=== PATIENT | male | born 1945 | race Caucasian/White ===

== ENCOUNTER 2019-10-12 16:12 | Inpatient (IN) | payer MEDICARE ==
[~2019-10-12] VITALS: Ht 175.3 cm; Wt 86.3 kg
[2019-10-12] VITALS (7 sets, daily range): BP systolic 125–148; BP diastolic 74–91
[2019-10-12] MEDS ORDERED: HEPARIN for IV BOLUS 10,000 UNIT/10 ML VIAL. IV ONE (16:15)
--- NOTE | 2019-10-12 16:22 | PHYS DOC ---
General Adult EDM: Chief Complaint: CHEST PAIN HPI: HPI: Patient is a 74 year old male who was brought here by EMS from home due to right sided chest pain that radiated to his right arm and shoulder started about 30 minutes ago. EMS were called, they given 2 doses of nitroglycerin and the pain improved. Patient was given 325 mg of aspirin by EMS on route here. Patient denies any cough or fever, denies being exposed to anybody who tested positive for COVID-19. Patient denies any history of coronary disease. Patient said when he had a prostate operation last year he went to [facility] one time. Patient has history of hypertension, no history of diabetes, no history of blood clot disorder. Review of Systems: Review of Systems: Constitutional: Denies fever or chills. [] Eyes: Denies change in visual acuity. [] HENT: Denies nasal congestion or sore throat. [] Respiratory: Denies cough or shortness of breath. [] Cardiovascular: Positive for chest pain. GI: Denies abdominal pain, nausea, vomiting, bloody stools or diarrhea. [] : Denies dysuria. [] Musculoskeletal: Denies back pain or joint pain. [] Integument: Denies rash. [] Neurologic: Denies headache, focal weakness or sensory changes. [] Endocrine: Denies polyuria or polydipsia. [] Lymphatic: Denies swollen glands. [] Psychiatric: Denies depression or anxiety. [] Heart Score: Risk Factors: Risk Factors: DM, Current or recent (<one month) smoker, HTN, HLP, family history of CAD, obesity. Risk Scores: Score 0 - 3: 2.5% MACE over next 6 weeks - Discharge Home Score 4 - 6: 20.3% MACE over next 6 weeks - Admit for Clinical Observation Score 7 - 10: 72.7% MACE over next 6 weeks - Early Invasive Strategies Current Medications: Current Medications Medications (Trade) Dose Ordered Sig/Marylou Start Time Stop Time Status Last Admin Dose Admin Heparin Sodium (Porcine) (Heparin Sodium) 4,000 unit 1X ONCE 10/12/19 16:15 10/12/19 16:20 DC Allergies: Allergies: Allergies Coded Allergies Type Severity Reaction Last Updated Verified No Known Drug Allergies 10/12/19 No Physical Exam: PE: Constitutional: Well developed, well nourished, no acute distress, non-toxic appearance. [] HENT: Normocephalic, atraumatic, bilateral external ears normal, oropharynx moist, no oral exudates, nose normal. [] Eyes: PERRLA, EOMI, conjunctiva normal, no discharge. [] Neck: Normal range of motion, no tenderness, supple, no stridor. [] Cardiovascular:Heart rate regular rhythm, no murmur [] Lungs & Thorax: Bilateral breath sounds clear to auscultation [] Abdomen: Bowel sounds normal, soft, no tenderness, no masses, no pulsatile masses. [] Skin: Warm, dry, no erythema, no rash. [] Back: No tenderness, no CVA tenderness. [] Extremities: No tenderness, no cyanosis, no clubbing, ROM intact, no edema. [] Neurologic: Alert and oriented X 3, normal motor function, normal sensory f unction, no focal deficits noted. [] Psychologic: Affect normal, judgement normal, mood normal. [] Current Patient Data: Labs: Laboratory Tests Test 10/12/19 16:17 White Blood Count 6.5 x10^3/uL Red Blood Count 5.05 x10^6/uL Hemoglobin 15.9 g/dL Hematocrit 46.2 % Mean Corpuscular Volume 92 fL Mean Corpuscular Hemoglobin 32 pg Mean Corpuscular Hemoglobin Concent 34 g/dL Red Cell Distribution Width 13.5 % Platelet Count 166 x10^3/uL Neutrophils (%) (Auto) 51 % Lymphocytes (%) (Auto) 38 % Monocytes (%) (Auto) 9 % Eosinophils (%) (Auto) 2 % Basophils (%) (Auto) 1 % Neutrophils # (Auto) 3.3 x10^3/uL Lymphocytes # (Auto) 2.5 x10^3/uL Monocytes # (Auto) 0.6 x10^3/uL Eosinophils # (Auto) 0.1 x10^3/uL Basophils # (Auto) 0.0 x10^3/uL Current Medications Medications (Trade) Dose Ordered Sig/Marylou Route PRN Reason Start Time Stop Time Status Last Admin Dose Admin Heparin Sodium (Porcine) (Heparin Sodium) 4,000 unit 1X ONCE IV 10/12/19 16:15 10/12/19 16:20 DC Ondansetron HCl (Zofran) 4 mg PRN Q8HRS PRN IV NAUSEA/VOMITING 5/27/20 16:30 10/13/19 16:29 UNV EKG: EKG: EKG WAS DONE AT 1660, RATE OF 62 BPM, ST SEGMENT ELEVATION IN II, III, AVF, V6. ST SEGMENT DEPRESSION IN V1, V2. EKG WAS READ BY THIS PHYSICIAN. Radiology/Procedures: Radiology/Procedures: Portable chest x-ray was read by this physician, no acute disease. Course & Med Decision Making: Course & Med Decision Making Pertinent Labs and Imaging studies reviewed. (See chart for details) Patient is a 74-year-old male who was evaluated in ER due to chest pain, EKG showed ST segment elevation consistent with an acute myocardial infarction. Code STEMI was activated on the field, EKG was transmitted here by EMS. Dr. Broderick, thermoscrew operator on-call was notified, [facility] team was present upon PATIENT arrival. Patient was given heparin 4000 units in the ED, he was taken urgently to the [facility] for diagnostic and treatment. He was in stable condition. Meggan Disclaimer: Meggan Disclaimer: This electronic medical record was generated, in whole or in part, using a voice recognition dictation system. Departure Departure Impression: Primary Impression: STEMI (ST elevation myocardial infarction) Disposition: ADMITTED INPATIENT Admitting Physician: CLEMENTE (DR. ABBASI) Condition: STABLE Referrals: NON,STAFF (PCP) JEFFRY HSU DO October 12, 2019 16:22
[2019-10-12 16:26] LABS: BASO % 1 % (0-3); EOS # 0.1 x10^3/uL (0.0-0.7); EOS % 2 % (0-3); HEMATOCRIT 46.2 % (39.0-53.0); HEMOGLOBIN 15.9 g/dL (13.0-17.5); LYMPH # 2.5 x10^3/uL (1.0-4.8); LYMPH % 38 % (24-48); MEAN CORPUSCULAR HEMOGLOBIN 32 pg (25-35); MEAN CORPUSCULAR HGB CONC 34 g/dL (31-37); MEAN CORPUSCULAR VOLUME 92 fL (79-100); MONO # 0.6 x10^3/uL (0.0-1.1); MONO % 9 % (0-9); NEUT # 3.3 x10^3/uL (1.8-7.7); NEUT % 51 % (31-73); PLATELET COUNT 166 x10^3/uL (140-400); RED BLOOD COUNT 5.05 x10^6/uL (4.30-5.70); RED CELL DISTRIBUTION WIDTH 13.5 % (11.5-14.5); WHITE BLOOD COUNT 6.5 x10^3/uL (4.0-11.0)
[2019-10-12] MEDS ORDERED: ONDANSETRON PF 4 MG/2 ML VIAL. IV PRN ×2 (16:30→18:45)
--- NOTE | 2019-10-12 16:33 | RAD ---
PORTABLE CHEST 1V Clinical Indication: Reason: CHEST PAIN,ER 1 / Spl. Instructions: / History: Comparison: None. Findings: Tortuous and ectatic thoracic aorta. Cardiac size is normal. There is minimal atelectasis in the lung bases. No pulmonary vascular congestion. There is no pneumothorax. No pleural effusion is appreciated. No acute bone abnormality. Bilateral AC arthropathy. IMPRESSION: No acute cardiopulmonary process. Electronically signed by: Casa Frias MD (10/12/2019 4:30 PM) [id number]
[2019-10-12 16:36] LABS: CREATININE 1.2 mg/dL (0.7-1.3); PROTHROMBIN TIME PATIENT 13.4 SEC (11.7-14.0)
[2019-10-12] MEDS ORDERED: BIVALIRUDIN 250 MG VIAL. IV ONE ×2 (16:39→16:45)
[2019-10-12 16:41] LABS: ALBUMIN 3.9 g/dL (3.4-5.0); ALBUMIN/GLOBULIN RATIO 1.1 (1.0-1.7); TOTAL BILIRUBIN 0.5 mg/dL (0.2-1.0); TOTAL PROTEIN 7.4 g/dL (6.4-8.2)
[2019-10-12] MEDS ORDERED: LIDOCAINE 1% Multi-Dose 20 ML VIAL. INJ ONE (16:45)
[2019-10-12] MEDS ORDERED: IODIXANOL 320 MG/ML 100 ML VIAL. IART ONE (16:45)
[2019-10-12] MEDS ORDERED: MIDAZOLAM HCL/PF 2 MG/2 ML VIAL. IV ONE (16:45)
[2019-10-12] MEDS ORDERED: fentaNYL PF VIAL 100 MCG/2 ML VIAL IV ONE (16:45)
[2019-10-12] MEDS ORDERED: IODIXANOL 320 MG/ML 100 ML VIAL. ONE ×2 (17:06→17:36)
[2019-10-12] MEDS ORDERED: TICAGRELOR 90 MG TABLET. ONE (17:14)
[2019-10-12] MEDS ORDERED: TICAGRELOR 90 MG TABLET. PO ONE (17:15)
[2019-10-12] MEDS ORDERED: CONTRAST GIVEN. MC PRN (17:15)
[2019-10-12] MEDS ORDERED: fentaNYL PF VIAL 100 MCG/2 ML VIAL ONE (17:18)
[2019-10-12] MEDS ORDERED: MIDAZOLAM HCL/PF 2 MG/2 ML VIAL. ONE (17:19)
--- NOTE | 2019-10-12 17:29 | PDOC2 ---
CONSULT Date of Consult Date of Consult DATE: 10/12/19 TIME: 17:29 Reason for Consult Reason for Consult: Acute STEMI Referring Physician Referring Physician: Dr. Pace Identification/Chief Complaint Chief Complaint Chest pain Source Source: Chart review, Patient History of Present Illness Reason for Visit: 74-year-old male apparently played golf earlier today and on the way home he did not feel well and when he got home he started having retrosternal chest pressure associated with diaphoresis, 7/10 severity. He also complained of mild dyspnea. EMS found ST elevations in inferior leads and code STEMI was activated. On presentation to our ED, he continued to have chest pain at 5/10 severity but denied any orthopnea/PND, palpitations or syncope. He denied any previous history of coronary disease but he stated that he was diagnosed with a bout of atrial fibrillation, perioperatively when he presented for prostate surgery, approximately 1 year ago. He is followed by [facility] cardiology. Past Medical History Past Medical History Hypertension Hyperlipidemia Atrial fibrillation in the perioperative setting Osteoarthritis Past Surgical History Past Surgical History Prostate surgery Family History Family History Coronary disease and hypertension Social History Social History Patient quit smoking 30 years ago, admitted to occasional intake of alcohol but denied any drug abuse. Current Problem List Problem List Problems Medical Problems: (1) STEMI (ST elevation myocardial infarction) Status: Acute Current Medications Current Medications Current Medications Heparin Sodium (Porcine) (Heparin Sodium) 4,000 unit 1X ONCE IV Last administered on 10/12/19at 16:17; Start 10/12/19 at 16:15; Stop 10/12/19 at 16:20; Status DC Ondansetron HCl (Zofran) 4 mg PRN Q8HRS PRN IV NAUSEA/VOMITING; Start 10/12/19 at 16:30; Stop 10/13/19 at 16:29 Bivalirudin (Angiomax) 250 mg STK-MED ONCE IV ; Start 10/12/19 at 16:39; Stop 10/12/19 at 16:40; Status DC Dopamine HCl/ Dextrose 0 ml @ As Directed STK-MED ONCE IV ; Start 10/12/19 at 16:52; Stop 10/12/19 at 16:52; Status DC Heparin Sodium/ Sodium Chloride (HEPARIN for ARTERIAL LINE FLUSH) 1,000 unit 1X ONCE IART ; Start 10/12/19 at 16:45; Stop 10/12/19 at 17:00; Status DC Midazolam HCl (Versed) 2 mg 1X ONCE IV ; Start 10/12/19 at 16:45; Stop 10/12/19 at 17:00; Status DC Fentanyl Citrate (Fentanyl 2ml Vial) 100 mcg 1X ONCE IV ; Start 10/12/19 at 16:45; Stop 10/12/19 at 17:00; Status DC Iodixanol (Visipaque 320) 100 ml 1X ONCE IART ; Start 10/12/19 at 16:45; Stop 10/12/19 at 17:00; Status DC Bivalirudin (Angiomax) 250 mg 1X ONCE IV ; Start 10/12/19 at 16:45; Stop 10/12/19 at 17:00; Status DC Lidocaine HCl (Lidocaine 1% 20ml Vial) 20 ml 1X ONCE INJ ; Start 10/12/19 at 16:45; Stop 10/12/19 at 17:00; Status DC Info (CONTRAST GIVEN -- Rx MONITORING) 1 each PRN DAILY PRN MC SEE COMMENTS; Start 10/12/19 at 17:15; Stop 10/14/19 at 17:14 Iodixanol (Visipaque 320) 100 ml STK-MED ONCE .ROUTE ; Start 10/12/19 at 17:06; Stop 10/12/19 at 17:07; Status DC Ticagrelor (Brilinta) 90 mg STK-MED ONCE .ROUTE ; Start 10/12/19 at 17:14; Stop 10/12/19 at 17:14; Status DC Ticagrelor (Brilinta) 180 mg 1X ONCE PO ; Start 10/12/19 at 17:15; Stop at 17:20; Status DC Fentanyl Citrate (Fentanyl 2ml Vial) 100 mcg STK-MED ONCE .ROUTE ; Start 10/12/19 at 17:18; Stop 10/12/19 at 17:19; Status DC Midazolam HCl (Versed) 2 mg STK-MED ONCE .ROUTE ; Start 10/12/19 at 17:19; Stop 10/12/19 at 17:19; Status DC Allergies Allergies: Coded Allergies: No Known Drug Allergies (Unverified , 10/12/19) ROS PSYCHOLOGICAL ROS: No: Hallucinations Eyes: No Loss of vision HEENT: No: Epistaxis Respiratory: YES: Shortness of breath; No: Hemoptysis Cardiovascular: yes Chest Pain; No Palpitations Gastrointestinal: No Vomiting, No Diarrhea Genitourinary: No Hematuria Neurological: No Seizures Skin: No Rash Physical Exam General: Alert, mild distress HEENT: Atraumatic Lungs: Clear to auscultation Heart: Regular rate Abdomen: Soft, No tenderness Extremities: No edema Neuro: Normal speech Psych/Mental Status: Mood NL Vitals VITALS Vital Signs Date Time Temp Pulse Resp B/P (MAP) Pulse Ox O2 Delivery O2 Flow Rate FiO2 10/12/19 16:12 97.6 79 20 133/85 (101) 95 Room Air 97.6 Labs Labs Laboratory Tests Test 10/12/19 16:17 White Blood Count 6.5 x10^3/uL (4.0-11.0) Red Blood Count 5.05 x10^6/uL (4.30-5.70) Hemoglobin 15.9 g/dL (13.0-17.5) Hematocrit 46.2 % (39.0-53.0) Mean Corpuscular Volume 92 fL (79-100) Mean Corpuscular Hemoglobin 32 pg (25-35) Mean Corpuscular Hemoglobin Concent 34 g/dL (31-37) Red Cell Distribution Width 13.5 % (11.5-14.5) Platelet Count 166 x10^3/uL (140-400) Neutrophils (%) (Auto) 51 % (31-73) Lymphocytes (%) (Auto) 38 % (24-48) Monocytes (%) (Auto) 9 % (0-9) Eosinophils (%) (Auto) 2 % (0-3) Basophils (%) (Auto) 1 % (0-3) Neutrophils # (Auto) 3.3 x10^3/uL (1.8-7.7) Lymphocytes # (Auto) 2.5 x10^3/uL (1.0-4.8) Monocytes # (Auto) 0.6 x10^3/uL (0.0-1.1) Eosinophils # (Auto) 0.1 x10^3/uL (0.0-0.7) Basophils # (Auto) 0.0 x10^3/uL (0.0-0.2) Prothrombin Time 13.4 SEC (11.7-14.0) Prothromb Time International Ratio 1.1 (0.8-1.1) Activated Partial Thromboplast Time 27 SEC (24-38) Sodium Level 141 mmol/L (136-145) Potassium Level 4.0 mmol/L (3.5-5.1) Chloride Level 107 mmol/L (98-107) Carbon Dioxide Level 27 mmol/L (21-32) Anion Gap 7 (6-14) Blood Urea Nitrogen 20 mg/dL (8-26) Creatinine 1.2 mg/dL (0.7-1.3) Estimated GFR (Cockcroft-Gault) 59.0 BUN/Creatinine Ratio 17 (6-20) Glucose Level 128 mg/dL (70-99) Calcium Level 9.0 mg/dL (8.5-10.1) Magnesium Level 2.0 mg/dL (1.8-2.4) Total Bilirubin 0.5 mg/dL (0.2-1.0) Aspartate Amino Transf (AST/SGOT) 27 U/L (15-37) Alanine Aminotransferase (ALT/SGPT) 27 U/L (16-63) Alkaline Phosphatase 82 U/L (46-116) Troponin I Quantitative 0.023 ng/mL (0.000-0.055) RO-Ukr-K-Type Natriuretic Peptide 80 pg/mL (0-449) Total Protein 7.4 g/dL (6.4-8.2) Albumin 3.9 g/dL (3.4-5.0) Albumin/Globulin Ratio 1.1 (1.0-1.7) Laboratory Tests Test 10/12/19 16:17 White Blood Count 6.5 x10^3/uL (4.0-11.0) Red Blood Count 5.05 x10^6/uL (4.30-5.70) Hemoglobin 15.9 g/dL (13.0-17.5) Hematocrit 46.2 % (39.0-53.0) Mean Corpuscular Volume 92 fL (79-100) Mean Corpuscular Hemoglobin 32 pg (25-35) Mean Corpuscular Hemoglobin Concent 34 g/dL (31-37) Red Cell Distribution Width 13.5 % (11.5-14.5) Platelet Count 166 x10^3/uL (140-400) Neutrophils (%) (Auto) 51 % (31-73) Lymphocytes (%) (Auto) 38 % (24-48) Monocytes (%) (Auto) 9 % (0-9) Eosinophils (%) (Auto) 2 % (0-3) Basophils (%) (Auto) 1 % (0-3) Neutrophils # (Auto) 3.3 x10^3/uL (1.8-7.7) Lymphocytes # (Auto) 2.5 x10^3/uL (1.0-4.8) Monocytes # (Auto) 0.6 x10^3/uL (0.0-1.1) Eosinophils # (Auto) 0.1 x10^3/uL (0.0-0.7) Basophils # (Auto) 0.0 x10^3/uL (0.0-0.2) Prothrombin Time 13.4 SEC (11.7-14.0) Prothromb Time International Ratio 1.1 (0.8-1.1) Activated Partial Thromboplast Time 27 SEC (24-38) Sodium Level 141 mmol/L (136-145) Potassium Level 4.0 mmol/L (3.5-5.1) Chloride Level 107 mmol/L (98-107) Carbon Dioxide Level 27 mmol/L (21-32) Anion Gap 7 (6-14) Blood Urea Nitrogen 20 mg/dL (8-26) Creatinine 1.2 mg/dL (0.7-1.3) Estimated GFR (Cockcroft-Gault) 59.0 BUN/Creatinine Ratio 17 (6-20) Glucose Level 128 mg/dL (70-99) Calcium Level 9.0 mg/dL (8.5-10.1) Magnesium Level 2.0 mg/dL (1.8-2.4) Total Bilirubin 0.5 mg/dL (0.2-1.0) Aspartate Amino Transf (AST/SGOT) 27 U/L (15-37) Alanine Aminotransferase (ALT/SGPT) 27 U/L (16-63) Alkaline Phosphatase 82 U/L (46-116) Troponin I Quantitative 0.023 ng/mL (0.000-0.055) EY-Eyo-N-Type Natriuretic Peptide 80 pg/mL (0-449) Total Protein 7.4 g/dL (6.4-8.2) Albumin 3.9 g/dL (3.4-5.0) Albumin/Globulin Ratio 1.1 (1.0-1.7) Assessment/Plan Assessment/Plan 1. Acute inferior wall ST elevation myocardial infarction. Patient has ongoing chest pain. We will proceed with emergent cardiac catheterization and primary PCI/stent placement. Risks and benefits were explained and he is agreeable. Start aspirin, heparin, beta-blockers and statins. 2. Hypertension: Controlled 3. Hyperlipidemia: Continue statin therapy 4. Paroxysmal atrial fibrillation: Patient had one episode a year ago in perioperative setting. He is presently in sinus rhythm. Monitor telemetry. Thank you for your consultation. TIM GALLO MD October 12, 2019 17:29
[2019-10-12] MEDS ORDERED: ACETAMINOPHEN 325 MG TABLET. PO PRN ×2 (17:30→18:45)
[2019-10-12] MEDS ORDERED: IV 1/2 NORMAL SALINE 1,000 ML IV SCH (17:30)
[2019-10-12] MEDS ORDERED: NITROGLYCERIN SUBLINGUAL 0.4 MG BOTTLE OF 25. SL PRN (17:30)
--- NOTE | 2019-10-12 17:30 | PDOC ---
MODERATE SEDATION ASSESSMENT RISKS/ALTERNATIVES Risks/Alternatives Risks and alternatives of this type of sedation and procedure discussed with: RISK/ALTERNATIVES: Patient H & P ON CHART H & P H & P on chart and reviewed for co-morbid conditions and appropriate labs. H&P ON CHART: Yes STATUS PREG STATUS ASSESSED: N/A MEDS/ALLERGIES REVIEWED Meds/Allergies Reviewed Medications and Allergies including time and route of recently administered narcotics and sedatives. MEDS/ALLERGIES REVIEWED: Yes ASA RATING ASA RATING: II AIRWAY ASSESSMENT Airway Assessment Airway patency, oral function limitations, presence of caps, crowns, dentures, partials, and ability to extend neck assessed. AIRWAY ASSESSMENT: Yes MALLAMPATI SCORE MALLAMPATI SCORE: II PRE-SEDATION ASSESSMENT PRE-SEDATION ASSESSMENT: Yes TIM GALLO MD October 12, 2019 17:30
[2019-10-12] MEDS ORDERED: LIDOCAINE 1% Multi-Dose 20 ML VIAL. ONE (17:36)
[2019-10-12] MEDS ORDERED: LORazepam 0.5 MG TABLET PO PRN (18:45)
[2019-10-12] MEDS ORDERED: DOCUSATE SODIUM 100 MG CAPSULE. PO PRN (18:45)
[2019-10-12] MEDS ORDERED: 0.9 % SODIUM CHLORIDE 10 ML DISP.SYRIN. IV PRN (18:45)
[2019-10-12] MEDS ORDERED: guaiFENesin ORAL 200 MG/10 ML LIQUID. PO PRN (18:45)
[2019-10-12] MEDS ORDERED: MAG HYDROX/ALUMINUM HYD/SIMETH 30 ML ORAL.SUSP PO PRN (18:45)
[2019-10-12] MEDS ORDERED: ALBUTEROL SULFATE 2.5 MG/3 ML NEBU. NEB PRN (18:45)
--- NOTE | 2019-10-12 19:00 | NUR ---
Pt arrived to [facility] @ 1817. Pt A&Ox4, on RA. Femstop to right groin. No bleeding, soft. See Vascular assessment. Pt able to answer all admission questions. Report given to DIANDRA Zarco on hospital cook.
[2019-10-12] MEDS: ATORVASTATIN CALCIUM 40 MG TABLET. PO SCH (21:06)
[2019-10-12] MEDS: METOPROLOL TART IMMED RELEASE 25 MG TABLET. PO SCH (21:11)
--- NOTE | 2019-10-12 21:12 | PDOC1 ---
History and Physical Date of Admission Date of Admission DATE: 10/12/19 TIME: 21:10 Identification/Chief Complaint Chief Complaint SEEN IN ER WITH ACUTE STEMI, 74 year old male who was brought here by EMS from home due to right sided chest pain that radiated to his right arm and shoulder started about 30 minutes ago. He was playing golf earlier, began to have chest discomfort EMS were called, they given 2 doses of nitroglycerin and the pain improved. given 325 mg of aspirin by EMS on route denies any cough or fever, denies being exposed to anybody who tested positive for COVID-19. Patient denies any history of coronary disease. 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 Past Medical History Cardiovascular: HTN, Hyperlipidemia Heme/Onc: No pertinent hx Hepatobiliary: No pertinent hx Musculoskeletal: Osteoarthritis Infectious disease: No pertinent hx Family History Family History: High Cholestrol, Hypertension Social History Smoke: Quit (quit 30 yrs ago) ALCOHOL: occassional Drugs: None Current Problem List Problem List Problems Medical Problems: (1) STEMI (ST elevation myocardial infarction) Status: Acute Current Medications Current Medications Current Medications Heparin Sodium (Porcine) (Heparin Sodium) 4,000 unit 1X ONCE IV Last administered on 10/12/19at 16:17; Start 10/12/19 at 16:15; Stop 10/12/19 at 16:20; Status DC Ondansetron HCl (Zofran) 4 mg PRN Q8HRS PRN IV NAUSEA/VOMITING; Start 10/12/19 at 16:30; Stop 10/13/19 at 16:29 Bivalirudin (Angiomax) 250 mg STK-MED ONCE IV ; Start 10/12/19 at 16:39; Stop 10/12/19 at 16:40; Status DC Dopamine HCl/ Dextrose 0 ml @ As Directed STK-MED ONCE IV ; Start 10/12/19 at 16:52; Stop 10/12/19 at 16:52; Status DC Heparin Sodium/ Sodium Chloride (HEPARIN for ARTERIAL LINE FLUSH) 1,000 unit 1X ONCE IART Last administered on 10/12/19at 17:39; Start 10/12/19 at 16:45; Stop 10/12/19 at 17:00; Status DC Midazolam HCl (Versed) 2 mg 1X ONCE IV Last administered on 10/12/19at 17:38; Start 10/12/19 at 16:45; Stop 10/12/19 at 17:00; Status DC Fentanyl Citrate (Fentanyl 2ml Vial) 100 mcg 1X ONCE IV Last administered on at 17:38; Start 10/12/19 at 16:45; Stop 10/12/19 at 17:00; Status DC Iodixanol (Visipaque 320) 100 ml 1X ONCE IART Last administered on 10/12/19at 17:39; Start 10/12/19 at 16:45; Stop 10/12/19 at 17:00; Status DC Bivalirudin (Angiomax) 250 mg 1X ONCE IV Last administered on 10/12/19at 17:38; Start 10/12/19 at 16:45; Stop 10/12/19 at 17:00; Status DC Lidocaine HCl (Lidocaine 1% 20ml Vial) 20 ml 1X ONCE INJ Last administered on 10/12/19at 17:39; Start 10/12/19 at 16:45; Stop 10/12/19 at 17:00; Status DC Info (CONTRAST GIVEN -- Rx MONITORING) 1 each PRN DAILY PRN MC SEE COMMENTS; Start 10/12/19 at 17:15; Stop 10/14/19 at 17:14 Iodixanol (Visipaque 320) 100 ml STK-MED ONCE .ROUTE ; Start 10/12/19 at 17:06; Stop 10/12/19 at 17:07; Status DC Ticagrelor (Brilinta) 90 mg STK-MED ONCE .ROUTE ; Start 10/12/19 at 17:14; Stop 10/12/19 at 17:14; Status DC Ticagrelor (Brilinta) 180 mg 1X ONCE PO Last administered on 10/12/19at 17:40; Start 10/12/19 at 17:15; Stop 10/12/19 at 17:20; Status DC Fentanyl Citrate (Fentanyl 2ml Vial) 100 mcg STK-MED ONCE .ROUTE ; Start 10/12/19 at 17:18; Stop 10/12/19 at 17:19; Status DC Midazolam HCl (Versed) 2 mg STK-MED ONCE .ROUTE ; Start 10/12/19 at 17:19; Stop 10/12/19 at 17:19; Status DC Sodium Chloride 1,000 ml @ 100 mls/hr Q10H IV ; Start 10/12/19 at 17:30; Stop 10/13/19 at 03:29 Aspirin (Ecotrin) 81 mg DAILYWBKFT PO ; Start 10/13/19 at 08:00 Ticagrelor (Brilinta) 90 mg BID PO ; Start 10/13/19 at 09:00 Metoprolol Tartrate (Lopressor) 12.5 mg BID PO ; Start 10/12/19 at 21:00 Atorvastatin Calcium (Lipitor) 40 mg QHS PO ; Start 10/12/19 at 21:00 Acetaminophen (Tylenol) 650 mg PRN Q6HRS PRN PO MILD PAIN / TEMP > 100.3'F; Start 10/12/19 at 17:30 Nitroglycerin (Nitrostat) 0.4 mg PRN Q5MIN PRN SL CHEST PAIN; Start 10/12/19 at 17:30 Iodixanol (Visipaque 320) 100 ml STK-MED ONCE .ROUTE ; Start 10/12/19 at 17:36; Stop 10/12/19 at 17:36; Status DC Lidocaine HCl (Lidocaine 1% 20ml Vial) 20 ml STK-MED ONCE .ROUTE ; Start 10/12/19 at 17:36; Stop 10/12/19 at 17:36; Status DC Heparin Sodium/ Sodium Chloride 500 ml @ As Directed STK-MED ONCE .ROUTE ; Start 10/12/19 at 17:36; Stop 10/12/19 at 17:36; Status DC Sodium Chloride (Normal Saline Flush) 3 ml QSHIFT PRN IV AFTER MEDS AND BLOOD DRAWS; Start 10/12/19 at 18:45 Ondansetron HCl (Zofran) 4 mg PRN Q4HRS PRN IV NAUSEA/VOMITING; Start 10/12/19 at 18:45 Acetaminophen (Tylenol) 650 mg PRN Q4HRS PRN PO TEMP OVER 100.4F OR MILD PAIN; Start 10/12/19 at 18:45 Al Hydroxide/Mg Hydroxide (Mylanta Plus Xs) 30 ml PRN DAILY PRN PO HEARTBURN / GAS; Start 10/12/19 at 18:45 Docusate Sodium (Colace) 100 mg PRN BID PRN PO HARD STOOLS; Start 10/12/19 at 18:45 Albuterol Sulfate (Ventolin Neb Soln) 2.5 mg PRN Q4HRS PRN NEB SHORTNESS OF BREATH; Start 10/12/19 at 18:45 Guaifenesin (Robitussin) 200 mg PRN Q4HRS PRN PO COUGH; Start 10/12/19 at 18:45 Lorazepam (Ativan) 0.5 mg PRN Q4HRS PRN PO ANXIETY / AGITATION; Start 10/12/19 at 18:45 Allergies Allergies: Coded Allergies: No Known Drug Allergies (Unverified , 10/12/19) ROS Review of System Review of Systems: Review of Systems: Constitutional: Denies fever or chills. [] Eyes: Denies change in visual acuity. [] HENT: Denies nasal congestion or sore throat. [] Respiratory: Denies cough or shortness of breath. [] Cardiovascular: Positive for chest pain. GI: Denies abdominal pain, nausea, vomiting, bloody stools or diarrhea. [] : Denies dysuria. [] Musculoskeletal: Denies back pain or joint pain. [] Integument: Denies rash. [] Neurologic: Denies headache, focal weakness or sensory changes. [] Endocrine: Denies polyuria or polydipsia. [] Lymphatic: Denies swollen glands. [] Psychiatric: Denies depression or anxiety. [] 14 pt ros otherwise neg General: YES: Fatigue; No: Chills, Night Sweats, Malaise, Appetite, Other PSYCHOLOGICAL ROS: No: Anxiety, Behavioral Disorder, Concentration difficultie, Decreased libido, Depression, Disorientation, Hallucinations, Hostility, Irritablity, Memory difficulties, Mood Swings, Obsessive thoughts, Physical abuse, Sexual abuse, Sleep disturbances, Suicidal ideation, Other Eyes: No Blurry vision, No Decreased vision, No Double vision, No Dry eyes, No Excessive tearing, No Eye Pain, No Itchy Eyes, No Loss of vision, No P hotophobia, No Scotomata, No Uses contacts, No Uses glasses, No Other ALLERGY AND IMMUNOLOGY: No: Hives, Insect Bite Sensitivity, Itchy/Watery Eyes, Nasal Congestion, Post Nasal Drip, Seasonal Allergies, Other Hematological and Lymphatic: No: Bleeding Problems, Blood Clots, Blood Transfusions, Brusing, Night Sweats, Pallor, Swollen Lymph Nodes, Other Respiratory: YES: Shortness of breath; No: Cough, Hemoptysis, Orthopnea, Pleuritic Pain, SOB with excertion, Sputum Changes, Stridor, Tachypnea, Wheezing, Other Cardiovascular: yes Chest Pain Gastrointestinal: No Nausea, No Vomiting, No Abdominal Pain, No Diarrhea, No Constipation, No Melena, No Hematochezia, No Other Musculoskeletal: No Gait Disturbance, No Joint Pain, No Joint Stiffness, No Joint Swelling, No Muscle Pain, No Muscular Weakness, No Pain In:, No Swelling In:, No Other Neurological: No Behavorial Changes, No Bowel/Bladder ControlChng, No Confusion, No Dizziness, No Gait Disturbance, No Headaches, No Impaired Coord/balance, No Memory Loss, No Numbness/Tingling, No Seizures, No Speech Problems, No Tremors, No Visual Changes, No Weakness, No Other Physical Exam Physical Exam Physical Exam: PE: Constitutional: Well developed, well nourished, no acute distress, non-toxic appearance. [] HENT: Normocephalic, atraumatic, bilateral external ears normal, oropharynx moist, no oral exudates, nose normal. [] Eyes: PERRLA, EOMI, conjunctiva normal, no discharge. [] Neck: Normal range of motion, no tenderness, supple, no stridor. [] Cardiovascular:Heart rate regular rhythm, no murmur [] Lungs & Thorax: Bilateral breath sounds clear to auscultation [] Abdomen: Bowel sounds normal, soft, no tenderness, no masses, no pulsatile masses. [] Skin: Warm, dry, no erythema, no rash. [] Back: No tenderness, no CVA tenderness. [] Extremities: No tenderness, no cyanosis, no clubbing, ROM intact, no edema. [] Neurologic: Alert and oriented X 3, normal motor function, normal sensory function, no focal deficits noted. [] Psychologic: Affect normal, judgement normal, mood normal. [] General: Alert, Oriented X3, Cooperative, No acute distress HEENT: Atraumatic, PERRLA Lungs: Clear to auscultation, Normal air movement Heart: RRR, no thrills, no rubs, no gallops Cardiovascular: S1 Breasts: Not examined Abdomen: Normal bowel sounds, Soft, No tenderness, No masses Rectal Exam: not examined Extremities: No cyanosis Neuro: Normal speech, Cranial nerves 3-12 NL Psych/Mental Status: Mental status NL, Mood NL Vitals Vitals Vital Signs Date Time Temp Pulse Resp B/P (MAP) Pulse Ox O2 Delivery O2 Flow Rate FiO2 10/12/19 18:30 18 147/77 (100) 94 Room Air 10/12/19 17:53 70 2.0 10/12/19 16:12 97.6 97.6 Labs Labs Laboratory Tests Test 10/12/19 16:17 White Blood Count 6.5 x10^3/uL (4.0-11.0) Red Blood Count 5.05 x10^6/uL (4.30-5.70) Hemoglobin 15.9 g/dL (13.0-17.5) Hematocrit 46.2 % (39.0-53.0) Mean Corpuscular Volume 92 fL (79-100) Mean Corpuscular Hemoglobin 32 pg (25-35) Mean Corpuscular Hemoglobin Concent 34 g/dL (31-37) Red Cell Distribution Width 13.5 % (11.5-14.5) Platelet Count 166 x10^3/uL (140-400) Neutrophils (%) (Auto) 51 % (31-73) Lymphocytes (%) (Auto) 38 % (24-48) Monocytes (%) (Auto) 9 % (0-9) Eosinophils (%) (Auto) 2 % (0-3) Basophils (%) (Auto) 1 % (0-3) Neutrophils # (Auto) 3.3 x10^3/uL (1.8-7.7) Lymphocytes # (Auto) 2.5 x10^3/uL (1.0-4.8) Monocytes # (Auto) 0.6 x10^3/uL (0.0-1.1) Eosinophils # (Auto) 0.1 x10^3/uL (0.0-0.7) Basophils # (Auto) 0.0 x10^3/uL (0.0-0.2) Prothrombin Time 13.4 SEC (11.7-14.0) Prothromb Time International Ratio 1.1 (0.8-1.1) Activated Partial Thromboplast Time 27 SEC (24-38) Sodium Level 141 mmol/L (136-145) Potassium Level 4.0 mmol/L (3.5-5.1) Chloride Level 107 mmol/L (98-107) Carbon Dioxide Level 27 mmol/L (21-32) Anion Gap 7 (6-14) Blood Urea Nitrogen 20 mg/dL (8-26) Creatinine 1.2 mg/dL (0.7-1.3) Estimated GFR (Cockcroft-Gault) 59.0 BUN/Creatinine Ratio 17 (6-20) Glucose Level 128 mg/dL (70-99) Calcium Level 9.0 mg/dL (8.5-10.1) Magnesium Level 2.0 mg/dL (1.8-2.4) Total Bilirubin 0.5 mg/dL (0.2-1.0) Aspartate Amino Transf (AST/SGOT) 27 U/L (15-37) Alanine Aminotransferase (ALT/SGPT) 27 U/L (16-63) Alkaline Phosphatase 82 U/L (46-116) Troponin I Quantitative 0.023 ng/mL (0.000-0.055) WZ-Mmm-Z-Type Natriuretic Peptide 80 pg/mL (0-449) Total Protein 7.4 g/dL (6.4-8.2) Albumin 3.9 g/dL (3.4-5.0) Albumin/Globulin Ratio 1.1 (1.0-1.7) Laboratory Tests Test 10/12/19 16:17 White Blood Count 6.5 x10^3/uL (4.0-11.0) Red Blood Count 5.05 x10^6/uL (4.30-5.70) Hemoglobin 15.9 g/dL (13.0-17.5) Hematocrit 46.2 % (39.0-53.0) Mean Corpuscular Volume 92 fL (79-100) Mean Corpuscular Hemoglobin 32 pg (25-35) Mean Corpuscular Hemoglobin Concent 34 g/dL (31-37) Red Cell Distribution Width 13.5 % (11.5-14.5) Platelet Count 166 x10^3/uL (140-400) Neutrophils (%) (Auto) 51 % (31-73) Lymphocytes (%) (Auto) 38 % (24-48) Monocytes (%) (Auto) 9 % (0-9) Eosinophils (%) (Auto) 2 % (0-3) Basophils (%) (Auto) 1 % (0-3) Neutrophils # (Auto) 3.3 x10^3/uL (1.8-7.7) Lymphocytes # (Auto) 2.5 x10^3/uL (1.0-4.8) Monocytes # (Auto) 0.6 x10^3/uL (0.0-1.1) Eosinophils # (Auto) 0.1 x10^3/uL (0.0-0.7) Basophils # (Auto) 0.0 x10^3/uL (0.0-0.2) Prothrombin Time 13.4 SEC (11.7-14.0) Prothromb Time International Ratio 1.1 (0.8-1.1) Activated Partial Thromboplast Time 27 SEC (24-38) Sodium Level 141 mmol/L (136-145) Potassium Level 4.0 mmol/L (3.5-5.1) Chloride Level 107 mmol/L (98-107) Carbon Dioxide Level 27 mmol/L (21-32) Anion Gap 7 (6-14) Blood Urea Nitrogen 20 mg/dL (8-26) Creatinine 1.2 mg/dL (0.7-1.3) Estimated GFR (Cockcroft-Gault) 59.0 BUN/Creatinine Ratio 17 (6-20) Glucose Level 128 mg/dL (70-99) Calcium Level 9.0 mg/dL (8.5-10.1) Magnesium Level 2.0 mg/dL (1.8-2.4) Total Bilirubin 0.5 mg/dL (0.2-1.0) Aspartate Amino Transf (AST/SGOT) 27 U/L (15-37) Alanine Aminotransferase (ALT/SGPT) 27 U/L (16-63) Alkaline Phosphatase 82 U/L (46-116) Troponin I Quantitative 0.023 ng/mL (0.000-0.055) RV-Zod-A-Type Natriuretic Peptide 80 pg/mL (0-449) Total Protein 7.4 g/dL (6.4-8.2) Albumin 3.9 g/dL (3.4-5.0) Albumin/Globulin Ratio 1.1 (1.0-1.7) Images Images Clinical Indication: Reason: CHEST PAIN,ER 1 / Spl. Instructions: / History: Comparison: None. Findings: Tortuous and ectatic thoracic aorta. Cardiac size is normal. There is minimal atelectasis in the lung bases. No pulmonary vascular congestion. There is no pneumothorax. No pleural effusion is appreciated. No acute bone abnormality. Bilateral AC arthropathy. IMPRESSION: No acute cardiopulmonary process. Electronically signed by: Casa Parra MD (10/12/2019 4:30 PM) [id number] DICTATED and SIGNED BY: CASA PARRA MD DATE: 10/12/19 1630 VTE Prophylaxis Ordered VTE Prophylaxis Devices: No VTE Pharmacological Prophylaxi: No Assessment/Plan Assessment/Plan Impression: ACUTE STEMI (ST elevation myocardial infarction) CAD ADMITTED TO [employer]gently npo consult DR Hugo 35 min cc time NICOLETTE ABBASI MD October 12, 2019 21:12
[2019-10-13] VITALS (13 sets, daily range): BP systolic 118–146; BP diastolic 58–87
--- NOTE | 2019-10-13 03:44 | EKG ---
[facility] [address] [place] [address] Test Date: 2019-10-12 Test Time: 16:16:29 Pat Name: BRANDO FLORES Department: Room: 262 1 Gender: M Staff Attorney: : 1945 Requested By: JEFFRY HSU Order Number: [id number] Reading MD: Ananda Lyn MD Measurements Intervals [place] Rate: 62 P: -5 AK: 260 QRS: 21 QRSD: 102 T: 85 QT: 406 QTc: 414 Interpretive Statements SINUS RHYTHM INFERIOR/POSTERIOR INJURY Electronically Signed On 10-13-2019 14:59:35 CDT by Ananda Lyn MD
[2019-10-13 06:16] LABS: CHOLESTEROL/HDL RATIO 3.7
--- NOTE | 2019-10-13 08:59 | CARD ---
MR#: [id number] Date of Study: 10/12/2019 Ordering Physician: TIM BRODERICK, Referring Physician: TIM BRODERICK Tech: Chary Beyer APPROVED REPORT Technologist: Chary Beyer Nurse: Risa Yap R.N. Procedure(s) performed: 1. Left heart catheterization, selective coronary angiography and left ventr iculography 2. Successful PCI/drug-eluting stents placement to the right coronary artery fl time: 13.1 mins dose: 139 gycm2 contrast: 202 ml moderate sedation: 86 MINS INDICATION The indication(s) include : Acute inferior wall ST elevation myocardial infarction. CSHA Clinical Frailty Scale CSHA Clinical Frailty Scale: Managing Well Heart Failure Heart Failure: No PROCEDURE NARRATIVE After explaining the risks, benefits and alternative options, informed consent was obtained from odilia ent. Patient was brought to the cardiac Sheet Taker and his right groin was prepped and draped in the u sual fashion. 20 cc of 2% lidocaine was infiltrated into the skin and subcutaneous tissues for local anesthesia. Arterial access was obtained in the right common femoral artery and a 6 Gambian sheath w as inserted. 6 Gambian JL 4 and 6 Gambian JR4 catheters were used to perform selective angiography of the left and right coronary arteries. 6 Gambian pigtail catheter was used to perform left ventriculog claire. The following findings were noted: FINDINGS 1. Hemodynamics: Elevated left ventricular end-diastolic pressure of 26 mmHg consistent with acute d iastolic heart failure. No pullback gradient across the aortic valve. 2. Left ventriculography: Normal left ventricular systolic function with ejection fraction estimated at 60%. No significant mitral regurgitation seen. 3. Coronary angiography: a. The left main coronary artery arose from the left sinus of Valsalva, gave rise to the left anteri or descending and left circumflex arteries and did not show any significant stenosis. b. The left anti-descending artery did not show any significant stenosis. c. The left circumflex artery did not show any significant stenosis. d. The right coronary artery was a large and dominant vessel arising from the right sinus of Valsalv a, showed an aneurysmal area in the midsegment and 100% occlusion in the distal segment. INTERVENTION The right coronary artery was engaged with a 6 Gambian JR4 guide catheter and the complete occlusion o f the distal segment was crossed with a 0.014 inch SeptRx pro-water guidewire. This was predilated wi th a 2.5 x 12 mm trek balloon following which this was treated with overlapping 4.0 x 18 and 4.0 x 15 mm resolute Cristi drug-eluting stents. Follow-up angiography showed resolution of the stenosis to 0% with CLARIBEL-3 distal flow. Patient tolerated the procedure well. Hemostasis was achieved using Angio -Seal. There were no immediate complications. CLARIBEL Flow CLARIBEL Flow (Pre-Intervention): CLARIBEL-0 CLARIBEL Flow (Post-Intervention): CLARIBEL-3 Conclusion 1. Severe single-vessel coronary disease with 100% occlusion of dominant right coronary artery. 2. Successful PCI/drug-eluting stent placement to the right coronary artery. 3. Normal left ventricular systolic function with ejection fraction estimated at 60%. Recommendations 1. Aspirin 81 mg daily 2. Ticagrelor 90 mg twice daily for preferably 1 year 3. Cardiovascular risk factor modification Signed by : Tim Broderick, Electronically Approved : 10/13/2019 08:59:07
[2019-10-13] MEDS: ASPIRIN ENTERIC COATED 81 MG TABLET.DR. PO SCH (09:00)
[2019-10-13] MEDS: TICAGRELOR 90 MG TABLET. PO SCH ×2 (09:00→20:20)
[2019-10-13] MEDS: METOPROLOL TART IMMED RELEASE 25 MG TABLET. PO SCH ×2 (09:01→20:21)
--- NOTE | 2019-10-13 10:30 | NUR ---
SS following for discharge planning. SS reviewed pt chart and discussed with pt RN. Pt is from home with spouse and is currently on room air. Pt had heart cath and stents on 10/12/2019. Pt getting ECHO today. SS will continue to follow for discharge planning.
--- NOTE | 2019-10-13 11:05 | CARD ---
MR#: [id number] Date of Study: 10/13/2019 Ordering Physician: TIM GALLO, Referring Physician: TIM GALLO, Tech: Alina Chery APPROVED REPORT EXAM: Two-dimensional and M-mode echocardiogram with Doppler and color Doppler. Other Information Quality : AverageHR: 62bpm INDICATION Acute MD Atrial Fibrillation RISK FACTORS Hypertension 2D DIMENSIONS RVDd3.1 (2.9-3.5cm)Left Atrium(2D)4.0 (1.6-4.0cm) IVSd1.2 (0.7-1.1cm)Aortic Root(2D)3.4 (2.0-3.7cm) LVDd5.2 (3.9-5.9cm)LVOT Diameter2.1 (1.8-2.4cm) PWd0.9 (0.7-1.1cm)LVDs3.1 (2.5-4.0cm) FS (%) 40.8 %SV94.3 ml LVEF(%)71.2 (>50%) Aortic Valve AoV Peak Robert.136.6cm/sAoV VTI24.8cm AO Peak GR.7.5mmHgLVOT Peak Robert.122.8cm/s LVOT VTI 23.55cmAO Mean GR.4mmHg RENETTA (VMAX)2.41dc5OWH (VTI)3.39cm2 AI P 1/2 [id number] Mitral Valve MV E Lpidlfvb29.0cm/sMV DECEL [id number] MV A Meusktix86.4cm/sMV E Mean Gr.2mmHg MV [id number] Ratio1.0 MVA (PHT)3.64cm2 TDI E/Lateral E'12.3E/Medial E'12.0 Pulmonary Valve PV Peak Xowaqgiq486.8cm/sPV Peak Grad.5mmHg Tricuspid Valve TR P. [id number]/sRAP [id number] TR Peak Gr.46bwKoOVPX20ncDu Pulmonary Vein S1 Tqmqazao33.6cm/sD2 Nmpkmfky90.5cm/s PVa [id number] LEFT VENTRICLE The left ventricle is normal size. There is borderline to mild concentric left ventricular hypertroph y. The left ventricular systolic function is normal and the ejection fraction is within normal range. The Ejection Fraction is 55-60%. The mid to distal inferior wall is moderately hypokinetic. Otherwis e, grossly normal wall motion. Transmitral Doppler flow pattern is Grade I-abnormal relaxation patter n. RIGHT VENTRICLE The right ventricle is normal size. There is normal right ventricular wall thickness. The right ventr icular systolic function is normal. ATRIA The left atrium size is normal. The right atrium size is normal. The interatrial septum is intact wit h no evidence for an atrial septal defect or patent foramen ovale as noted on 2-D or Doppler imaging. AORTIC VALVE The aortic valve is normal in structure and function. Doppler and Color Flow revealed trace to mild a ortic regurgitation. There is no significant aortic valvular stenosis. MITRAL VALVE The mitral valve is normal in structure and function. There is no evidence of mitral valve prolapse. There is no mitral valve stenosis. Doppler and Color-flow revealed trace to mild mitral regurgitation . TRICUSPID VALVE The tricuspid valve is normal in structure and function. Doppler and Color Flow revealed trace tricus pid regurgitation with an estimated PAP of 32 mmHg. There is no tricuspid valve stenosis. PULMONIC VALVE The pulmonic valve is not well visualized. Doppler and Color Flow revealed mild to moderate pulmonic valvular regurgitation. There is no pulmonic valvular stenosis. GREAT VESSELS The aortic root is normal in size. The ascending aorta is Mildly dilated at 4.3 The IVC is dilated an d collapses <50% with inspiration. PERICARDIAL EFFUSION There is no evidence of significant pericardial effusion. Critical Notification Critical Value: No <Conclusion> The left ventricular systolic function is normal and the ejection fraction is within normal range. Th e Ejection Fraction is 55-60%. The mid to distal inferior wall is moderately hypokinetic. Otherwise, grossly normal wall motion. The ascending aorta is Mildly dilated at 4.3 cm Signed by : Ananda Lyn, Electronically Approved : 10/13/2019 11:05:26
--- NOTE | 2019-10-13 11:39 | PDOC ---
JANET LORA GRANTS ADMINISTRATOR 10/13/19 1139: CARDIO Progress Notes Date and Time Date of Service 10/13/2019 Time of Evaluation 0950 Subjective Subjective: No Chest Pain, No shortness of breath, No Palpitations Vitals Vitals Vital Signs Date Time Temp Pulse Resp B/P (MAP) Pulse Ox O2 Delivery O2 Flow Rate FiO2 10/13/19 09:01 65 143/87 10/13/19 09:00 15 95 Room Air 10/13/19 04:00 97.4 97.4 10/12/19 17:53 2.0 Weight Weight [ ] Input and Output Intake and Output Intake and Output 10/13/19 07:00 Intake Total 271 ml Output Total 1775 ml Balance -1504 ml Intake Oral 0 ml Blood Product IV Normal Saline Flush 271 ml Output Urine Total 1775 ml Laboratory Labs Laboratory Tests Test 10/12/19 16:17 10/13/19 05:10 White Blood Count 6.5 x10^3/uL (4.0-11.0) Red Blood Count 5.05 x10^6/uL (4.30-5.70) Hemoglobin 15.9 g/dL (13.0-17.5) Hematocrit 46.2 % (39.0-53.0) Mean Corpuscular Volume 92 fL (79-100) Mean Corpuscular Hemoglobin 32 pg (25-35) Mean Corpuscular Hemoglobin Concent 34 g/dL (31-37) Red Cell Distribution Width 13.5 % (11.5-14.5) Platelet Count 166 x10^3/uL (140-400) Neutrophils (%) (Auto) 51 % (31-73) Lymphocytes (%) (Auto) 38 % (24-48) Monocytes (%) (Auto) 9 % (0-9) Eosinophils (%) (Auto) 2 % (0-3) Basophils (%) (Auto) 1 % (0-3) Neutrophils # (Auto) 3.3 x10^3/uL (1.8-7.7) Lymphocytes # (Auto) 2.5 x10^3/uL (1.0-4.8) Monocytes # (Auto) 0.6 x10^3/uL (0.0-1.1) Eosinophils # (Auto) 0.1 x10^3/uL (0.0-0.7) Basophils # (Auto) 0.0 x10^3/uL (0.0-0.2) Prothrombin Time 13.4 SEC (11.7-14.0) Prothromb Time International Ratio 1.1 (0.8-1.1) Activated Partial Thromboplast Time 27 SEC (24-38) Sodium Level 141 mmol/L (136-145) Potassium Level 4.0 mmol/L (3.5-5.1) Chloride Level 107 mmol/L (98-107) Carbon Dioxide Level 27 mmol/L (21-32) Anion Gap 7 (6-14) Blood Urea Nitrogen 20 mg/dL (8-26) Creatinine 1.2 mg/dL (0.7-1.3) Estimated GFR (Cockcroft-Gault) 59.0 BUN/Creatinine Ratio 17 (6-20) Glucose Level 128 mg/dL (70-99) Calcium Level 9.0 mg/dL (8.5-10.1) Magnesium Level 2.0 mg/dL (1.8-2.4) Total Bilirubin 0.5 mg/dL (0.2-1.0) Aspartate Amino Transf (AST/SGOT) 27 U/L (15-37) Alanine Aminotransferase (ALT/SGPT) 27 U/L (16-63) Alkaline Phosphatase 82 U/L (46-116) Troponin I Quantitative 0.023 ng/mL (0.000-0.055) CJ-Zwd-N-Type Natriuretic Peptide 80 pg/mL (0-449) Total Protein 7.4 g/dL (6.4-8.2) Albumin 3.9 g/dL (3.4-5.0) Albumin/Globulin Ratio 1.1 (1.0-1.7) Triglycerides Level 52 mg/dL (0-150) Cholesterol Level 127 mg/dL (0-200) LDL Cholesterol, Calculated 83 mg/dL (0-100) VLDL Cholesterol, Calculated 10 mg/dL (0-40) Non-HDL Cholesterol Calculated 93 mg/dL (0-129) HDL Cholesterol 34 mg/dL (40-60) Cholesterol/HDL Ratio 3.7 Thyroid Stimulating Hormone (TSH) 1.839 uIU/mL (0.358-3.74) Physical Exam HEENT: Neck Supple W Full Motion Chest: Symmetric LUNGS: Clear to Auscultation Heart: S1S2, RRR (SR) Abdomen: Soft N/T Extremities: No Edema, No Calf Tenderness Neurology: alert, oriented, follow commands Other Exams right groin arteriotomy site intact, no hematoma or redness, neurovascualr status to bilateral LE intact. Assessment Assessment 1. Acute inferior STEMI: S/P PCI/GEMA x2 to RCA 2. NSVT: due to reperfusion. SR otherwise 3. HTN: controlled 4. HLP: close to goal Recommendations 1. 81 mg ASA with brilinta. 2. TTE today. TSH, BMP and Mg 3. Lipitor, metoprolol 4. Encouraged cardiac rehab when it opens 5. Anticipate DC tomorrow. Follow up November 29 3PM TIM GALLO MD 10/13/191: CARDIO Progress Notes Assessment Assessment Patient seen and examined. Agree with COMMUNITY HEALTH NURSING DIRECTOR's assessment and plan. s/p PCI/GEMA to RCA yesterday, presently chest pain free 2D echo showed inferior hypokinesis with preserved LVEF Continue DAPT Probable DC home tomorrow Cardiac rehab referral JANET LORA APRN October 13, 2019 11:39 TIM GALLO MD October 13, 2019 18:11
[2019-10-13 12:30] LABS: CALCIUM 8.3 mg/dL (8.5-10.1); CREATININE 0.9 mg/dL (0.7-1.3); GFR 82.3; POTASSIUM 3.4 mmol/L (3.5-5.1)
--- NOTE | 2019-10-13 12:48 | PDOC ---
[facility] PROGRESS NOTE Chief Complaint Chief Complaint Acute inferior STEMI: S/P PCI/GEMA x2 to RCA NSV HTN HLP History of Present Illness History of Present Illness 10/13/2019 Patient alert and oriented Discussed with RN Chart reviewed The plan is to discharge in the morning Vitals/I&O Vitals/I&O: Vital Signs Date Time Temp Pulse Resp B/P (MAP) Pulse Ox O2 Delivery O2 Flow Rate FiO2 10/13/19 12:00 Room Air 10/13/19 09:01 65 143/87 10/13/19 09:00 15 95 10/13/19 04:00 97.4 97.4 10/12/19 17:53 2.0 I & O 10/12/19 10/12/19 10/13/19 15:00 23:00 07:00 Intake Total 271 ml Output Total 925 ml 850 ml Balance -925 ml -579 ml Physical Exam General: Alert, mild distress Heart: Regular rate Abdomen: Soft, No tenderness Extremities: No edema Labs Labs: Laboratory Tests Test 10/12/19 16:17 10/13/19 05:10 White Blood Count 6.5 x10^3/uL (4.0-11.0) Red Blood Count 5.05 x10^6/uL (4.30-5.70) Hemoglobin 15.9 g/dL (13.0-17.5) Hematocrit 46.2 % (39.0-53.0) Mean Corpuscular Volume 92 fL (79-100) Mean Corpuscular Hemoglobin 32 pg (25-35) Mean Corpuscular Hemoglobin Concent 34 g/dL (31-37) Red Cell Distribution Width 13.5 % (11.5-14.5) Platelet Count 166 x10^3/uL (140-400) Neutrophils (%) (Auto) 51 % (31-73) Lymphocytes (%) (Auto) 38 % (24-48) Monocytes (%) (Auto) 9 % (0-9) Eosinophils (%) (Auto) 2 % (0-3) Basophils (%) (Auto) 1 % (0-3) Neutrophils # (Auto) 3.3 x10^3/uL (1.8-7.7) Lymphocytes # (Auto) 2.5 x10^3/uL (1.0-4.8) Monocytes # (Auto) 0.6 x10^3/uL (0.0-1.1) Eosinophils # (Auto) 0.1 x10^3/uL (0.0-0.7) Basophils # (Auto) 0.0 x10^3/uL (0.0-0.2) Prothrombin Time 13.4 SEC (11.7-14.0) Prothromb Time International Ratio 1.1 (0.8-1.1) Activated Partial Thromboplast Time 27 SEC (24-38) Sodium Level 141 mmol/L (136-145) 136 mmol/L (136-145) Potassium Level 4.0 mmol/L (3.5-5.1) 3.4 mmol/L (3.5-5.1) Chloride Level 107 mmol/L (98-107) 104 mmol/L (98-107) Carbon Dioxide Level 27 mmol/L (21-32) 23 mmol/L (21-32) Anion Gap 7 (6-14) 9 (6-14) Blood Urea Nitrogen 20 mg/dL (8-26) 18 mg/dL (8-26) Creatinine 1.2 mg/dL (0.7-1.3) 0.9 mg/dL (0.7-1.3) Estimated GFR (Cockcroft-Gault) 59.0 82.3 BUN/Creatinine Ratio 17 (6-20) Glucose Level 128 mg/dL (70-99) 105 mg/dL (70-99) Calcium Level 9.0 mg/dL (8.5-10.1) 8.3 mg/dL (8.5-10.1) Magnesium Level 2.0 mg/dL (1.8-2.4) 2.0 mg/dL (1.8-2.4) Total Bilirubin 0.5 mg/dL (0.2-1.0) Aspartate Amino Transf (AST/SGOT) 27 U/L (15-37) Alanine Aminotransferase (ALT/SGPT) 27 U/L (16-63) Alkaline Phosphatase 82 U/L (46-116) Troponin I Quantitative 0.023 ng/mL (0.000-0.055) YP-Jbu-E-Type Natriuretic Peptide 80 pg/mL (0-449) Total Protein 7.4 g/dL (6.4-8.2) Albumin 3.9 g/dL (3.4-5.0) Albumin/Globulin Ratio 1.1 (1.0-1.7) Triglycerides Level 52 mg/dL (0-150) Cholesterol Level 127 mg/dL (0-200) LDL Cholesterol, Calculated 83 mg/dL (0-100) VLDL Cholesterol, Calculated 10 mg/dL (0-40) Non-HDL Cholesterol Calculated 93 mg/dL (0-129) HDL Cholesterol 34 mg/dL (40-60) Cholesterol/HDL Ratio 3.7 Thyroid Stimulating Hormone (TSH) 1.839 uIU/mL (0.358-3.74) Assessment and Plan Assessmemt and Plan Problems Medical Problems: (1) STEMI (ST elevation myocardial infarction) Status: Acute Acute inferior STEMI: S/P PCI/GEMA x2 to RCA NSVT HTN HLP Plan Echo Cardiac cocktail (beta-blockers ANALISA inhibitor statins aspirin etc.) Home meds DVT prophylaxis Hope to discharge in a.m. Comment Review of Relevant I have reviewed the following items david (where applicable) has been applied. Medications: Current Medications Medications (Trade) Dose Ordered Sig/Marylou Route PRN Reason Start Time Stop Time Status Last Admin Dose Admin Heparin Sodium (Porcine) (Heparin Sodium) 4,000 unit 1X ONCE IV 10/12/19 16:15 10/12/19 16:20 DC 10/12/19 16:17 Heparin Sodium/ Sodium Chloride (HEPARIN for ARTERIAL LINE FLUSH) 1,000 unit 1X ONCE IART 10/12/19 16:45 10/12/19 17:00 DC 10/12/19 17:39 Midazolam HCl (Versed) 2 mg 1X ONCE IV 10/12/19 16:45 10/12/19 17:00 DC 10/12/19 17:38 Fentanyl Citrate (Fentanyl 2ml Vial) 100 mcg 1X ONCE IV 10/12/19 16:45 10/12/19 17:00 DC 10/12/19 17:38 Iodixanol (Visipaque 320) 100 ml 1X ONCE IART 10/12/19 16:45 10/12/19 17:00 DC 10/12/19 17:39 Bivalirudin (Angiomax) 250 mg 1X ONCE IV 10/12/19 16:45 10/12/19 17:00 DC 10/12/19 17:38 Lidocaine HCl (Lidocaine 1% 20ml Vial) 20 ml 1X ONCE INJ 10/12/19 16:45 10/12/19 17:00 DC 10/12/19 17:39 Ticagrelor (Brilinta) 180 mg 1X ONCE PO 10/12/19 17:15 10/12/19 17:20 DC 10/12/19 17:40 Sodium Chloride 1,000 ml @ 100 mls/hr Q10H IV 10/12/19 17:30 10/13/19 03:29 DC 10/12/19 21:15 Aspirin (Ecotrin) 81 mg DAILYWBKFT PO 10/13/19 08:00 10/13/19 09:00 Ticagrelor (Brilinta) 90 mg BID PO 10/13/19 09:00 10/13/19 09:00 Metoprolol Tartrate (Lopressor) 12.5 mg BID PO 10/12/19 21:00 10/13/19 09:01 Atorvastatin Calcium (Lipitor) 40 mg QHS PO 10/12/19 21:00 10/12/19 21:06 HARVINDER MEHTA III DO October 13, 2019 12:48
[2019-10-13] MEDS ORDERED: POTASSIUM CHLORIDE 20 MEQ TABLET.ER. PO ONE (13:00)
--- NOTE | 2019-10-13 15:17 | NUR ---
PT TRANSFERRED FROM ROOM 262 TO 248 THIS SHIFT. PT ORIENTED TO NEW ROOM AND STAFF. DENIES ANY PAIN AT THIS TIME. PT RESTING IN ROOM TALKING WITH ON CELL PHONE AT THIS TIME. WILL CONTINUE TO MONITOR.
[2019-10-13] MEDS: ATORVASTATIN CALCIUM 40 MG TABLET. PO SCH (20:21)
[2019-10-14 03:30] VITALS: BP 120/74
[2019-10-14 07:00] VITALS: BP 114/66
--- NOTE | 2019-10-14 08:28 | PDOC ---
[facility] PROGRESS NOTE Chief Complaint Chief Complaint Acute inferior STEMI: S/P PCI/GEMA x2 to RCA NSV HTN HLP History of Present Illness History of Present Illness 10/14/2019 Patient seen and examined [place] he is at his baseline requesting discharge We will go ahead but discharge if okay with cardiology 10/13/2019 Patient alert and oriented Discussed with RN Chart reviewed The plan is to discharge in the morning Vitals/I&O Vitals/I&O: Vital Signs Date Time Temp Pulse Resp B/P (MAP) Pulse Ox O2 Delivery O2 Flow Rate FiO2 10/14/19 07:33 Room Air 10/14/19 07:00 98.4 63 18 114/66 (82) 93 98.4 I & O 10/13/19 10/13/19 10/14/19 14:59 22:59 06:59 Intake Total 250 ml 0 ml 240 ml Output Total 100 ml Balance 150 ml 0 ml 240 ml Physical Exam General: Alert, mild distress Heart: Regular rate Abdomen: Soft, No tenderness Extremities: No edema Assessment and Plan Assessmemt and Plan Problems Medical Problems: (1) STEMI (ST elevation myocardial infarction) Status: Acut Discharge if okay with cardiology Comment Review of Relevant I have reviewed the following items david (where applicable) has been applied. Medications: Current Medications Medications (Trade) Dose Ordered Sig/Marylou Route PRN Reason Start Time Stop Time Status Last Admin Dose Admin Ticagrelor (Brilinta) 90 mg BID PO 10/13/19 09:00 10/13/19 20:20 Potassium Chloride (Klor-Con) 20 meq 1X ONCE PO 10/13/19 13:00 10/13/19 13:01 DC 10/13/19 13:38 HARVINDER MEHTA III DO October 14, 2019 08:28
[2019-10-14] MEDS: ASPIRIN ENTERIC COATED 81 MG TABLET.DR. PO SCH (08:35)
[2019-10-14] MEDS: TICAGRELOR 90 MG TABLET. PO SCH (08:35)
[2019-10-14] MEDS: METOPROLOL TART IMMED RELEASE 25 MG TABLET. PO SCH (08:35)
--- NOTE | 2019-10-14 10:36 | PDOC ---
JANET LORA APRN 10/14/19 1036: CARDIO Progress Notes Date and Time Date of Service 10/14/2019 Time of Evaluation 1030 Subjective Subjective: No Chest Pain, No shortness of breath, No Palpitations Vitals Vitals Vital Signs Date Time Temp Pulse Resp B/P (MAP) Pulse Ox O2 Delivery O2 Flow Rate FiO2 10/14/19 08:35 63 114/66 10/14/19 07:33 Room Air 10/14/19 07:00 98.4 18 93 98.4 Weight Weight [ ] Input and Output Intake and Output Intake and Output 10/14/19 06:59 Intake Total 490 ml Output Total 100 ml Balance 390 ml Intake Oral 490 ml Output Urine Total 100 ml # Bowel Movements 2 Physical Exam HEENT: Neck Supple W Full Motion Chest: Symmetric LUNGS: Clear to Auscultation Heart: S1S2, RRR (SR) Abdomen: Soft N/T Extremities: No Edema, No Calf Tenderness Neurology: alert, oriented, follow commands Assessment Assessment 1. Acute inferior STEMI: S/P PCI/GEMA x2 to RCA, stable, doing well. EF nml with mid to distal inferior wall is moderately hypokinetic 2. NSVT: due to reperfusion. SR otherwise 3. HTN: controlled 4. HLP: close to goal Recommendations 1. 81 mg ASA with brilinta. 2. Lipitor, metoprolol 3. Encouraged cardiac rehab when it opens 4. Follow up November 29 3PM TIM GALLO MD 10/14/19 2008: CARDIO Progress Notes Assessment Assessment Patient seen and examined. Agree with CERTIFIED COATINGS INSPECTOR's assessment and plan. s/p PCI/GEMA to RCA chest pain free 2D echo showed preserved LVEF Continue DAPT and follow up with primary finisher plate JANET LORA APRN October 14, 2019 10:36 TIM GALLO MD October 14, 2019 20:08
[2019-10-14 10:56] VITALS: BP 114/69
[2019-10-14] MEDS ORDERED: ATOR40TA59 PO (11:01)
[2019-10-14] MEDS ORDERED: METO25TA4 PO (11:01)
[2019-10-14] MEDS ORDERED: TICA90TA PO (11:01)
[2019-10-14] MEDS ORDERED: ASPI-612 PO (11:01)
--- NOTE | 2019-10-14 11:14 | NUR ---
This RN called in pt's Nitroglycerin prescription per Tino Manrique to [facility] in [place] at [phone]. This RN spoke with mikaela Schwartz. Addendum: 10/14/19 at 1120 by CHARLES STAFFORD RN Per Tino Manrique APRN
--- NOTE | 2019-10-14 12:09 | NUR ---
Pt left unit at approx 1209 by ambulation via private vehicle with spouse. Pt's IVs removed with no complications, VSS, and belongings returned. This RN discussed discharge instructions and medications with pt, pt verbalized understanding and had no additional questions.
--- NOTE | 2019-10-15 13:52 | DS ---
DATE OF DISCHARGE: 10/14/2019 ADMISSION DIAGNOSIS: Acute myocardial infarction. DISCHARGE DIAGNOSIS: Postop drug-eluting stents x 2 to the right coronary artery. HOSPITAL COURSE: The patient is a pleasant middle-aged male, who presented with acute myocardial infarction. He was taken emergently to the catheterization laboratory. He has got 2 stents to the RCA. His highest troponin was 0.02. Yesterday was doing great. We discharged to home. DISPOSITION: Home. ACTIVITY: As tolerated. DIET: Cardiac. MEDICATIONS: Please see the MRAD. TOTAL TIME: 31 minutes. HARVINDER MEHTA DO DR: RADHA/akash JOB#: [id number] / [id number]
== END 2019-10-14 12:11 | disposition home or self-care (01) | DRG 246 ==
LOC: ER 16:12 → 2 SOUTH 16:18
PROVIDERS: ADMIT Family Medicine; ATTEND Family Medicine
PROC: 027035Z Dilation of Coronary Artery, One Artery with Two Drug-eluting Intraluminal Devices, Percutaneous Approach (ICD-10-PCS; principal; 2019-10-12)
PROC: 4A023N7 Measurement of Cardiac Sampling and Pressure, Left Heart, Percutaneous Approach (ICD-10-PCS; 2019-10-12)
PROC: B2111ZZ Fluoroscopy of Multiple Coronary Arteries using Low Osmolar Contrast (ICD-10-PCS; 2019-10-12)
PROC: B2151ZZ Fluoroscopy of Left Heart using Low Osmolar Contrast (ICD-10-PCS; 2019-10-12)
DX: I21.19 ST elevation (STEMI) myocardial infarction involving other coronary artery of inferior wall (principal); I50.31 Acute diastolic (congestive) heart failure; I47.2 Ventricular tachycardia; E78.5 Hyperlipidemia, unspecified; I48.0 Paroxysmal atrial fibrillation; I10 Essential (primary) hypertension; M19.90 Unspecified osteoarthritis, unspecified site; I25.10 Atherosclerotic heart disease of native coronary artery without angina pectoris; Z82.49 Family history of ischemic heart disease and other diseases of the circulatory system; Z83.49 Family history of other endocrine, nutritional and metabolic diseases; Z79.899 Other long term (current) drug therapy; Z87.891 Personal history of nicotine dependence
CPT/HCPCS: 92941; 93458; 96374; 99285; G0269; 36415; 71045; 80048; 80053; 80061; 83735; 83880; 84443; 84484; 85025; 85610; 85730; 93005; 93306; 99152; 99153; C1725; C1760; C1769; C1874; C1887; C1892; J0583; J1644; J2250; J3010; J3490; Q9967; C1771; G0378

== ENCOUNTER → 2020-12-04 | Outpatient (CLI) | payer MEDICARE ==
[~2020-12-04] MED LIST: ASPI-886 PO; ATOR40TA59 PO; METO25TA4 PO; REGADENOSON 0.4 MG/5 ML DISP.SYRIN. IV ONE; TICA90TA PO
--- NOTE | 2020-12-04 17:14 | CARD ---
MR#: [id number] Date of Study: 12/04/2020 Ordering Physician: TIM GALLO, Referring Physician: Kira CORONADO: Bhavesh Smith [facility] APPROVED REPORT EXAM: Two-dimensional and M-mode echocardiogram with Doppler and color Doppler. Other Information Quality : GoodHR: 65bpm Rhythm : NSR INDICATION Cardiac Disease: CAD 2D DIMENSIONS Left Atrium(2D)4.4 (1.6-4.0cm)IVSd1.1 (0.7-1.1cm) Aortic Root(2D)3.6 (2.0-3.7cm)LVDd4.1 (3.9-5.9cm) LVOT Diameter2.0 (1.8-2.4cm)PWd1.0 (0.7-1.1cm) LVDs2.0 (2.5-4.0cm)FS (%) 52.2 % SV63.8 ml Aortic Valve AoV Peak Robert.120.4cm/sAoV VTI27.4cm AO Peak GR.5.8mmHgLVOT Peak Robert.129.1cm/s LVOT VTI 28.80cmAO Mean GR.3mmHg RENETTA (VMAX)2.23nb2IVS (VTI)3.43cm2 Mitral Valve MV E Jmdwwkwz25.0cm/sMV DECEL LTWM350ez MV A Gyziqjax65.5cm/sMV OIR69wi E/A Ratio0.7MVA (PHT)2.73cm2 TDI E/Lateral E'8.2E/Medial E'10.3 Pulmonary Valve PV Peak Drkicdbl016.3cm/sPV Peak Grad.6mmHg Tricuspid Valve TR P. Fizdkiwf704uv/sTR Peak Gr.17mmHg Pulmonary Vein S1 Hanmjlzd42.3cm/sD2 Yqqbyqeu09.2cm/s LEFT VENTRICLE The left ventricle is normal size. There is normal left ventricular wall thickness. The left ventricu lar systolic function is normal and the ejection fraction is within normal range. The Ejection Fracti on is 55-60%. There is normal LV segmental wall motion. Transmitral Doppler flow pattern is Grade I-a bnormal relaxation pattern. No left ventricle thrombus noted on this study. There is no ventricular s eptal defect visualized. There is no left ventricular aneurysm. There is no mass noted in the left ve ntricle. RIGHT VENTRICLE The right ventricle is normal size. There is normal right ventricular wall thickness. The right ventr icular systolic function is normal. ATRIA The left atrium is borderline dilated. The right atrium size is normal. The interatrial septum is int act with no evidence for an atrial septal defect or patent foramen ovale as noted on 2-D or Doppler i maging. AORTIC VALVE The aortic valve is normal in structure and function. Doppler and Color Flow revealed trace aortic re gurgitation. There is no significant aortic valvular stenosis. There is no aortic valvular vegetation . MITRAL VALVE The mitral valve is normal in structure and function. There is no evidence of mitral valve prolapse. There is no mitral valve stenosis. Doppler and Color-flow revealed mild mitral regurgitation. TRICUSPID VALVE The tricuspid valve is normal in structure and function. Doppler and Color Flow revealed trace tricus pid regurgitation. There is no tricuspid valve prolapse or vegetation. There is no tricuspid valve st enosis. PULMONIC VALVE The pulmonary valve is normal in structure and function. Doppler and Color Flow revealed no pulmonic valvular regurgitation. There is no pulmonic valvular stenosis. GREAT VESSELS The aortic root is mildly enlarged. The ascending aorta is mildly dilated. (4.4cm) The pulmonary maris ry is normal. The IVC is normal in size and collapses >50% with inspiration. PERICARDIAL EFFUSION There is no pleural effusion. There is no evidence of significant pericardial effusion. Critical Notification Critical Value: No <Conclusion> The left ventricle is normal size. The left ventricular systolic function is normal and the ejection fraction is within normal range. The Ejection Fraction is 55-60%. Doppler and Color Flow revealed trace aortic regurgitation. There is no significant aortic valvular stenosis. Doppler and Color-flow revealed mild mitral regurgitation. Doppler and Color Flow revealed trace tricuspid regurgitation. The aortic root is mildly enlarged. The ascending aorta is mildly dilated. (4.4cm) Signed by : Von Griffiths MD Electronically Approved : 12/04/2020 17:13:31
--- NOTE | 2020-12-04 18:01 | RAD ---
MR#: [id number] Date of Study: 12/04/2020 Ordering Physician: TIM GALLO, Referring Physician: DARY CORONADO Tech: LITO Lassiter APPROVED REPORT Test Type: Pharmacological Stress Nurse/Tech: Risa Yap R.N. Test Indications: CAD Cardiac History: [place] 2020 -2 stents,htn Medications: See Electronic Medical Record Medical History: See Electronic Medical Record Resting ECG: SB w/1st degree AVB Resting Heart Rate: 58 bpm Resting Blood Pressure: 133/71mmHg Pretest Chest Pain: No chest pain Nurse/Tech Notes S1S2, lungs CTA Consent: The procedure was explained to the patient in lay terms. Informed consent was witnessed. Marin eout was entered into [facility]. History and Stress Test performed by LITO Lassiter Pharm. Details Pharmacologic stress testing was performed using 0.4mg per 5ml of regadenoson given intravenously ove r 7-10 seconds. Stress Symptoms SOA, tingling feet & hands POST EXERCISE Reason for Termination: Infusion complete Max HR: 84 bpm Max Blood Pressure: 151/72mmHg Blood Pressure response to exercise: Normal blood pressure response during stress. Heart Rate response to exercise: wnl Chest Pain: No. Arrhythmia: No. ST Change: No. INTERPRETATION Stress EKG Conclusion: The resting EKG shows a sinus rhythm with a rate of 58 with a prolonged LA int erval and nonspecific ST segment changes. The stress EKG shows no significant changes from baseline. No EKG evidence of stress-induced ischemia. Imaging Protocol IMAGE PROTOCOL: Rest Tc-99m/stress Tc-99m 1 day Rest: Stress: Viability: Radiopharm.Tc99m TuanaopxhSe23x Sestamibi Lvmq99bQi 31mCi Duration 15min. 10min. Img Date 12/04/2020 12/04/2020 Inj-Img [id number]. 60min. Rest Admin Site:IV - Right AntecubitalAdministrator:LITO Lassiter Stress Admin Site: IV - Right AntecubitalAdministrator: LEELA Patel, ARRT (R)(N) STRESS DATA End Diast. Vol.79.0mlAv. Heart Rate70.0bpm End Syst. Vol.15.0mlCO Index BSA0.0L/min Myocardial Iiso391.0gEject. Reipgxdm68.0% Stress Rates Pk. Fill Rate3.55EDV/secLVtime Pk. Fill 244.35msec Pk. Empty Rate4.42ESV/secLVtime Pk. Qwvhh444.32msec 1/3 Pk. Fill0.94EDV/sec Stress Scores Regional WT0.00Summed WT5.00 Regional WM0.00Summed WM0.00 LV Perfusion The stress scans show no significant defects. The rest scans show no significant defects. Nuclear imaging shows no reversible ischemia or infarct. Wall Motion Left ventricular systolic function is normal with no regional wall motion abnormalities and an ejecti on fraction of greater than 70%. LV Perf. Quant 17 Seg. SSS3.00 17 Seg. SRS2.00 17 Seg. SDS2.00 Stress Defect Extent (% LAD)0.00Rest Defect Extent (% LAD)0.00Rev. Defect Extent (% LAD)0.00 Stress Defect Extent (% LCX) 13.80Rest Defect Extent (% LCX)0.00Rev. Defect Extent (% LCX)0.00 Stress Defect Extent (% RCA)0.00Rest Defect Extent (% RCA)0.00Rev. Defect Extent (% RCA)0.00 Stress Defect Extent (% LETI)2.80Rest Defect Extent (% LETI)0.00Rev. Defect Extent (% LETI)0.00 Conclusion 1. No EKG evidence of stress-induced ischemia. 2. Nuclear imaging shows no reversible ischemia or infarct. 3. Normal left ventricular systolic function with an ejection fraction of greater than 70%. 4. Low risk Lexiscan nuclear stress test. Signed by : Von Griffiths MD Electronically Approved : 12/04/2020 18:00:18
== END ==
LOC: NM 09:08
PROVIDERS: ATTEND Internal Medicine Cardiovascular Disease
DX: I34.0 Nonrheumatic mitral (valve) insufficiency (principal); I77.810 Thoracic aortic ectasia; I25.10 Atherosclerotic heart disease of native coronary artery without angina pectoris
CPT/HCPCS: 78452; 93017; 93306; A9500; J2785